=== PATIENT | female | born 1995 | race Caucasian/White ===

== ENCOUNTER 2017-03-30 23:16 | Emergency (ER) | payer OTHER ==
[~2017-03-30] VITALS: Ht 152.4 cm; Wt 78.9 kg
[~2017-03-30 23:16] MED LIST: IBUP-2213 PO
[2017-03-30 23:22] VITALS: BP 142/112
--- NOTE | 2017-03-30 23:25 | NUR ---
PT AMB W/O ASST TO ER CH/A
--- NOTE | 2017-03-30 23:30 | NUR ---
21 Y/O F W/C/O R SIDE HEADACHE, NAUSEA AND CHILLS X 1 HR AGO. PT STATES HAS A HX OF HEADACHES WHICH RESOLVE WITH IBUPROFEN WHICH HASNT RESOLVE THIS TIME. PT DENIES FEELING DIZZY, OR HAVING ANY VISUAL PROBLEMS. NO OTHER S/S OF DISTRESS NOTED. ER MD MADE AWARE.
--- NOTE | 2017-03-30 23:32 | NUR ---
Dr. Smalls evaluating patient.
[2017-03-30] MEDS ORDERED: PROCHLORPERAZINE 10 MG/2 ML VIAL IM ONE (23:45)
[2017-03-30] MEDS ORDERED: diphenhydrAMINE 50 MG/ML VIAL IM ONE (23:45)
[2017-03-31 00:16] VITALS: BP 142/112
--- NOTE | 2017-03-31 00:16 | NUR ---
Patient discharged with v/s stable. Written and verbal after care instructions given and explained. Patient alert, oriented and verbalized understanding of instructions. Ambulatory with to car. All questions addressed prior to discharge. ID band removed. Patient advised to follow up with PMD. Rx of BENADRYL, AND COMPAZINE given. Patient educated on indication of medication including possible reaction and side effects. Opportunity to ask questions provided and answered.
== END 2017-03-31 00:16 | disposition home or self-care (01) ==
LOC: MED 23:16
DX: R51 Headache (principal)
CPT/HCPCS: 96372; 99284; J0780; J1200

== ENCOUNTER 2017-12-05 13:37 | Emergency (ER) | payer OTHER ==
[~2017-12-05] VITALS: Ht 152.4 cm; Wt 68.0 kg
--- NOTE | 2017-12-05 13:48 | NUR ---
PT AMBULATED TO ER BED 05
--- NOTE | 2017-12-05 13:50 | NUR ---
22Y/F BIB SELF C/O L RIB PAIN X 4 DAYS. PT STATES "NO TRAUMA, 8/10 SHARP PAIN, - REDNESS, - SWELLING. PT IS AAOX4, VSS AT THIS TIME, BED DOWN, BEDRAIL UP X 1, ER MD AWARE AND NOTIFIED OF PT STATUS. HX; GALLBLADDER REMOVAL 2013 RX; NONE
[2017-12-05 13:53] VITALS: BP 135/69
--- NOTE | 2017-12-05 14:11 | NUR ---
Patient being evaluated by physician at bedside.
[2017-12-05] MEDS ORDERED: KETOROLAC 60 MG/2 ML VIAL IM ONE (15:10)
[2017-12-05] MEDS ORDERED: cefTRIAXone 1,000 MG in LIDOCAINE 1% ***ER ONLY *** 2.1 ML IM ONE (15:10)
[2017-12-05] MEDS ORDERED: LACTULOSE 20 GM/30 ML UDC PO ONE (15:10)
--- NOTE | 2017-12-05 15:35 | NUR ---
PT TRANSFERED TO BED 4
[2017-12-05 16:25] VITALS: BP 127/64
--- NOTE | 2017-12-05 16:28 | NUR ---
Patient discharged with v/s stable. Written and verbal after care instructions given and explained. Patient alert, oriented and verbalized understanding of instructions. Ambulatory with steady gait. All questions addressed prior to discharge. ID band removed. Patient advised to follow up with PMD. Rx of MOTRIN & LEVAQUIN given. Patient educated on indication of medication including possible reaction and side effects. Opportunity to ask questions provided and answered.
== END 2017-12-05 16:28 | disposition home or self-care (01) ==
LOC: MED 13:37
DX: N39.0 Urinary tract infection, site not specified (principal); I10 Essential (primary) hypertension; Z79.1 Long term (current) use of non-steroidal anti-inflammatories (NSAID); Z90.49 Acquired absence of other specified parts of digestive tract
CPT/HCPCS: 81002; 81025; 96372; 99284; J0696; J1885; J2001

== ENCOUNTER 2018-04-07 21:05 | Emergency (ER) | payer OTHER ==
[~2018-04-07] VITALS: Ht 152.4 cm; Wt 77.2 kg
[2018-04-07 21:22] VITALS: BP 123/64
--- NOTE | 2018-04-07 21:26 | NUR ---
PT AMBULATED TO BED #11
--- NOTE | 2018-04-07 21:36 | NUR ---
PT PRESENTS TO ED WITH R EAR PAIN AND BURNING CHEST PAIN WHEN COUGHING. BILATERAL LUNG MERCER CLEAR. EDEMA AND REDNESS NOTED TO THROAT, NO EXUDATE. EXPERINCING SYMPTOMS X 4DAYS. VSS. NOTIFIED. WILL CONTINUE TO MONITOR.
[2018-04-07 22:10] VITALS: BP 123/64
--- NOTE | 2018-04-07 22:10 | NUR ---
Patient discharged with v/s stable. Written and verbal after care instructions given and explained. Patient alert, oriented and verbalized understanding of instructions. Ambulatory with steady gait. All questions addressed prior to discharge. ID band removed. Patient advised to follow up with PMD. Rx of MOTRIN AND PROMETHAZINE DM given. Patient educated on indication of medication including possible reaction and side effects. Opportunity to ask questions provided and answered.
== END 2018-04-07 22:10 | disposition home or self-care (01) ==
LOC: MED 21:05
DX: J06.9 Acute upper respiratory infection, unspecified (principal); Z79.1 Long term (current) use of non-steroidal anti-inflammatories (NSAID)
CPT/HCPCS: 36415; 87804; 99283

== ENCOUNTER 2018-06-06 09:51 | Emergency (ER) | payer OTHER ==
[~2018-06-06] VITALS: Ht 160 cm; Wt 56.7 kg
[2018-06-06 09:57] VITALS: BP 94/55
--- NOTE | 2018-06-06 09:59 | NUR ---
urine cup handed to pt
--- NOTE | 2018-06-06 10:05 | NUR ---
PT AMBULATED TO ER BED 06
--- NOTE | 2018-06-06 10:15 | NUR ---
22 YO F WITH CHIEF C/O LLQ SHARP ABD PAIN 8/10 X YESTERDAY. +N/V/D.
--- NOTE | 2018-06-06 10:36 | NUR ---
ALISSON FERRARO AT BEDSIDE EVALUATING PT.
--- NOTE | 2018-06-06 10:42 | NUR ---
Patient discharged with v/s stable. Written and verbal after care instructions given and explained. Patient alert, oriented and verbalized understanding of instructions. Ambulatory with steady gait. All questions addressed prior to discharge. ID band removed. Patient advised to follow up with PMD. Rx of ZOFRAN AND LOMOTIL given. Patient educated on indication of medication including possible reaction and side effects. Opportunity to ask questions provided and answered.
[2018-06-06 10:47] VITALS: BP 118/78
== END 2018-06-06 10:42 | disposition home or self-care (01) ==
LOC: MED 09:51
DX: R19.7 Diarrhea, unspecified (principal); R11.10 Vomiting, unspecified; K21.9 Gastro-esophageal reflux disease without esophagitis; Z90.49 Acquired absence of other specified parts of digestive tract; Z79.899 Other long term (current) drug therapy
CPT/HCPCS: 81002; 81025; 99283

== ENCOUNTER 2018-06-23 21:10 | Emergency (ER) | payer OTHER ==
[~2018-06-23] VITALS: Ht 152.4 cm; Wt 77.1 kg
[2018-06-23 21:18] VITALS: BP 123/74
[2018-06-23] MEDS ORDERED: ACETAMINOPHEN 325 MG TAB PO ONE (21:25)
--- NOTE | 2018-06-23 21:27 | NUR ---
BIB SELF WITH REPORTS OF THROAT PAIN, LEFT EAR ACHE, NON PRODUCTIVE COUGH, FEVER AND HEADACHE STARTING YESTERDAY. STATES PAIN 8/10 AT THIS TIME. DENIES NVD, CP, OR SOB. NO OTHER SYMPTOMS REPORTED AT THIS TIME.
--- NOTE | 2018-06-23 21:28 | NUR ---
EMY JONES AT BEDSIDE.
[2018-06-23] MEDS ORDERED: ONDANSETRON 4 MG ODT PO ONE (21:45)
[2018-06-23] MEDS ORDERED: HYDROcodone/APAP 5/325 MG 1 TAB TAB PO ONE (21:45)
[2018-06-23 22:10] VITALS: BP 104/66
--- NOTE | 2018-06-23 22:10 | NUR ---
Patient discharged with v/s stable. Written and verbal after care instructions given and explained. Patient alert, oriented and verbalized understanding of instructions. Ambulatory with steady gait. All questions addressed prior to discharge. ID band removed. Patient advised to follow up with PMD. Rx of PROMETHAZINE DM AND TYLENOL given. Patient educated on indication of medication including possible reaction and side effects. Opportunity to ask questions provided and answered.
== END 2018-06-23 22:10 | disposition home or self-care (01) ==
LOC: MED 21:10
DX: J06.9 Acute upper respiratory infection, unspecified (principal); R51 Headache; K21.9 Gastro-esophageal reflux disease without esophagitis; Z79.1 Long term (current) use of non-steroidal anti-inflammatories (NSAID)
CPT/HCPCS: 99284; Q0162; Q0163

== ENCOUNTER 2020-06-27 18:33 | Emergency (ER) | payer OTHER ==
[~2020-06-27] VITALS: Ht 152.4 cm; Wt 72.6 kg
[2020-06-27 18:44] VITALS: BP 136/70
--- NOTE | 2020-06-27 19:08 | NUR ---
24/F presents to ED with c/o of abdominal pain. Patient states she began having upper abdominal pain radiating to her lower abdomen x3 days. Patient denies taking anything for pain, states she just found out she was on Wednesday, patient is A0. Patient describes the pain as 7/10 intermittent, sharp pain. Patient states she has nausea but denies vomiting, diarrhea, dysuria and hematuria at this time.
--- NOTE | 2020-06-27 19:15 | NUR ---
Pt report given to Caroline. Transfer of care at this time.
--- NOTE | 2020-06-27 19:21 | NUR ---
ERMD at bedside for examination of patient
--- NOTE | 2020-06-27 19:21 | NUR ---
[facility] in [facility] - 06/27/20 at [address] Verma examining patient.
[2020-06-27 19:26] LABS: BASOPHILS % (AUTO) 0.3 % (0.0-2.0); EOSINOPHILS # (AUTO) 0.1 K/uL (0-0.4); EOSINOPHILS % (AUTO) 0.9 % (0.0-4.0); HEMATOCRIT 37.4 % (36-48); HEMOGLOBIN 12.7 g/dL (12.0-16.0); LYMPHOCYTES # (AUTO) 1.8 K/uL (2.5-16.5); LYMPHOCYTES % (AUTO) 23.4 % (20.5-51.1); MEAN CORPUSCULAR HEMOGLOBIN 29 pg (27-31); MEAN CORPUSCULAR HGB CONC 34 g/dL (33-37); MEAN CORPUSCULAR VOLUME 86.7 fL (80-94); MONOCYTES # (AUTO) 0.5 K/uL (0.8-1.0); MONOCYTES % (AUTO) 7.1 % (1.7-9.3); NEUTROPHILS # (AUTO) 5.3 K/uL (1.8-7.7); NEUTROPHILS % (AUTO) 68.3 % (42.2-75.2); PLATELET COUNT (AUTO) 245 K/uL (140-450); RED BLOOD CELL COUNT(AUTO) 4.32 MIL/uL (4.20-5.40); WHITE BLOOD COUNT (AUTO) 7.7 K/uL (4.8-10.8)
--- NOTE | 2020-06-27 19:28 | NUR ---
pt in semi tyson's position. reports pain of a 6/10 in the abdominal area. AAOx4. VSS stable. no signs of acute distress at this time.
--- NOTE | 2020-06-27 19:30 | NUR ---
ultrasound at bedside.
[2020-06-27] MEDS ORDERED: NITR100C7 PO (19:36)
[2020-06-27] MEDS ORDERED: ONDA8TAB87 PO (19:36)
[2020-06-27 19:55] LABS: APPEARANCE,URINE BLOODY (CLEAR); BILIRUBIN,URINE NEGATIVE (NEGATIVE); BLOOD, URINE TRACE-L (NEGATIVE); COLOR,URINE ORANGE (YELLOW); LEUKOCYTE ESTERASE ,URINE 2+ (NEGATIVE); NITRITE, URINE NEGATIVE (NEGATIVE); PH,URINE 5.5 (5.0-9.0); UGLUCOSE NEGATIVE (NEGATIVE)
[2020-06-27 20:19] LABS: RBC,URINE 0-5 /HPF (0-5)
[2020-06-27 20:38] VITALS: BP 103/59
--- NOTE | 2020-06-27 20:38 | NUR ---
Patient discharged with v/s stable. Written and verbal after care instructions given and explained. Patient alert, oriented and verbalized understanding of instructions. Ambulatory with steady gait. All questions addressed prior to discharge. ID band removed. Patient advised to follow up with PMD. Rx of zofran and macrobid 100mg capsule given. Patient educated on indication of medication including possible reaction and side effects. Opportunity to ask questions provided and answered.
== END 2020-06-27 20:38 | disposition home or self-care (01) ==
LOC: MED 18:33
DX: O20.0 Threatened abortion (principal); O23.41 Unspecified infection of urinary tract in pregnancy, first trimester; K21.9 Gastro-esophageal reflux disease without esophagitis; Z3A.01 Less than 8 weeks gestation of pregnancy; Z79.899 Other long term (current) drug therapy; Z90.49 Acquired absence of other specified parts of digestive tract
CPT/HCPCS: 36415; 76817; 81001; 81025; 84702; 85025; 86900; 86901; 87086; 99284

== ENCOUNTER 2020-07-29 17:57 | Emergency (ER) | payer OTHER ==
[~2020-07-29] VITALS: Ht 152.4 cm; Wt 85.3 kg
[~2020-07-29 17:57] MED LIST changes: +NITR100C7 PO; +ONDA8TAB87 PO
[2020-07-29 18:03] VITALS: BP 149/73
--- NOTE | 2020-07-29 18:13 | NUR ---
PT AMBULATED TO BED 12.
--- NOTE | 2020-07-29 18:13 | NUR ---
24 y/o F BIB mother from home with c/c vaginal bleeding. Patient states she was at work 20 minutes prior to arrival and began experiencing vaginal bleeding. Patient did not have a pad on, however, states it was "a lot of blood on the tissue paper." Patient denies any pain with bleeding. Reports 10 weeks 2 days ; A0 L1. LMP: 05/2020. Denies N/V/D, urinary symptoms, dizziness, JOSEPH, clots, SOB, chest pain, fever/chills. HR 100. Bed locked in lowest position, side rails x 1, call light in reach. Urine sample collected. Mother at bedside. PMH/Sx/Meds: Prenatals NKA
--- NOTE | 2020-07-29 18:13 | NUR ---
Patient to restroom for urine sample.
--- NOTE | 2020-07-29 18:18 | NUR ---
Lab at bedside.
--- NOTE | 2020-07-29 18:18 | NUR ---
Urine sample collected, walked to lab and handed to CPT. Donna
--- NOTE | 2020-07-29 18:22 | NUR ---
Dr. Verma is evaluating patient at bedside with Ultrasound.
[2020-07-29 18:28] LABS: BASOPHILS % (AUTO) 0.2 % (0.0-2.0); EOSINOPHILS # (AUTO) 0.1 K/uL (0-0.4); EOSINOPHILS % (AUTO) 0.8 % (0.0-4.0); HEMATOCRIT 38.1 % (36-48); HEMOGLOBIN 12.9 g/dL (12.0-16.0); LYMPHOCYTES # (AUTO) 1.8 K/uL (2.5-16.5); LYMPHOCYTES % (AUTO) 25.6 % (20.5-51.1); MEAN CORPUSCULAR HEMOGLOBIN 30 pg (27-31); MEAN CORPUSCULAR HGB CONC 34 g/dL (33-37); MEAN CORPUSCULAR VOLUME 87.2 fL (80-94); MONOCYTES # (AUTO) 0.5 K/uL (0.8-1.0); NEUTROPHILS # (AUTO) 4.7 K/uL (1.8-7.7); NEUTROPHILS % (AUTO) 66.4 % (42.2-75.2); PLATELET COUNT (AUTO) 238 K/uL (140-450); RED BLOOD CELL COUNT(AUTO) 4.37 MIL/uL (4.20-5.40); RED CELL DISTRIBUTION WIDTH 14.2 % (11.6-13.7)
[2020-07-29 18:42] LABS: APPEARANCE,URINE CLEAR (CLEAR); BILIRUBIN,URINE NEGATIVE (NEGATIVE); BLOOD, URINE 3+ (NEGATIVE); COLOR,URINE YELLOW (YELLOW); LEUKOCYTE ESTERASE ,URINE 1+ (NEGATIVE); NITRITE, URINE NEGATIVE (NEGATIVE); UGLUCOSE NEGATIVE (NEGATIVE)
[2020-07-29 18:48] LABS: RBC,URINE 11-20 (MOD) /HPF (0-5)
[2020-07-29] MEDS ORDERED: CEPH-588 PO (18:50)
[2020-07-29 19:00] VITALS: BP 149/73
--- NOTE | 2020-07-29 19:00 | NUR ---
Patient discharged with v/s stable. Written and verbal after care instructions given and explained. Patient alert, oriented and verbalized understanding of instructions. Ambulatory with by parent. All questions addressed prior to discharge. ID band removed. Patient advised to follow up with PMD. Rx of Cephalexin given. Patient educated on indication of medication including possible reaction and side effects. Opportunity to ask questions provided and answered.
== END 2020-07-29 19:00 | disposition home or self-care (01) ==
LOC: MED 17:57
DX: O20.0 Threatened abortion (principal); O23.41 Unspecified infection of urinary tract in pregnancy, first trimester; K21.9 Gastro-esophageal reflux disease without esophagitis; Z3A.10 10 weeks gestation of pregnancy
CPT/HCPCS: 36415; 81001; 84702; 85025; 87086; 99284

== ENCOUNTER 2021-07-16 12:33 | Emergency (ER) | payer OTHER ==
[~2021-07-16] VITALS: Ht 152.4 cm; Wt 88.0 kg
[~2021-07-16 12:33] MED LIST changes: +CEPH-588 PO
[2021-07-16 12:36] VITALS: BP 123/71
[2021-07-16] MEDS ORDERED: PROCHLORPERAZINE 10 MG/2 ML VIAL IVP ONE (12:50)
[2021-07-16] MEDS ORDERED: diphenhydrAMINE 50 MG/ML VIAL IVP ONE (12:50)
[2021-07-16] MEDS ORDERED: ACETAMINOPHEN 325 MG TAB PO ONE (12:50)
[2021-07-16] MEDS ORDERED: KETOROLAC 30 MG/ML VIAL IVP ONE (12:50)
[2021-07-16] MEDS ORDERED: NACL 0.9% 1,000 ML IV SCH (12:50)
[2021-07-16] MEDS ORDERED: LORazepam 2 MG/ML VIAL IVP ONE (13:20)
[2021-07-16] MEDS ORDERED: LORazepam 2 MG/ML VIAL ONE (13:20)
[2021-07-16 13:53] LABS: BASOPHILS % (AUTO) 0.1 % (0.0-2.0); HEMATOCRIT 39.3 % (36-48); HEMOGLOBIN 13.1 g/dL (12.0-16.0); LYMPHOCYTES # (AUTO) 0.6 K/uL (2.5-16.5); LYMPHOCYTES % (AUTO) 4.9 % (20.5-51.1); MEAN CORPUSCULAR HEMOGLOBIN 28 pg (27-31); MEAN CORPUSCULAR HGB CONC 33 g/dL (33-37); MONOCYTES # (AUTO) 0.7 K/uL (0.8-1.0); MONOCYTES % (AUTO) 5.9 % (1.7-9.3); NEUTROPHILS # (AUTO) 10.9 K/uL (1.8-7.7); NEUTROPHILS % (AUTO) 89.1 % (42.2-75.2); PLATELET COUNT (AUTO) 246 K/uL (140-450); RED BLOOD CELL COUNT(AUTO) 4.73 MIL/uL (4.20-5.40); RED CELL DISTRIBUTION WIDTH 13.2 % (11.6-13.7); WHITE BLOOD COUNT (AUTO) 12.2 K/uL (4.8-10.8)
[2021-07-16 14:09] LABS: ALBUMIN 4.1 g/dL (3.4-5.0); ANION GAP 15.5 (8-16); CARBON DIOXIDE 23.9 mmol/L (21-32); CREATININE 0.6 mg/dL (0.6-1.3); POTASSIUM 3.4 mmol/L (3.5-5.1); TOTAL BILIRUBIN 1.6 mg/dL (0.0-1.0)
[2021-07-16] MEDS ORDERED: IBUP-2213 PO (15:30)
[2021-07-16] MEDS ORDERED: ONDA-188 SL (15:30)
[2021-07-16] MEDS ORDERED: METO-486 PO (15:30)
[2021-07-16 16:15] VITALS: BP 123/79
== END 2021-07-16 16:22 | disposition home or self-care (01) ==
LOC: MED 12:33
DX: G43.909 Migraine, unspecified, not intractable, without status migrainosus (principal); K52.9 Noninfective gastroenteritis and colitis, unspecified; K21.9 Gastro-esophageal reflux disease without esophagitis; Z90.49 Acquired absence of other specified parts of digestive tract; Z98.890 Other specified postprocedural states; Z79.2 Long term (current) use of antibiotics; Z79.899 Other long term (current) drug therapy; Z79.1 Long term (current) use of non-steroidal anti-inflammatories (NSAID)
CPT/HCPCS: 36415; 74176; 80053; 81002; 81025; 83605; 83690; 84703; 85025; 87040; 93005; 96361; 96374; 96375; 99285; J0780; J1200; J1885; J2060; J7030

== ENCOUNTER 2022-01-24 10:22 | Emergency (ER) | payer OTHER ==
[~2022-01-24] VITALS: Ht 157.5 cm; Wt 79.4 kg
[~2022-01-24 10:22] MED LIST changes: +METO-486 PO; +ONDA-188 SL
[2022-01-24 10:29] VITALS: BP 150/79
--- NOTE | 2022-01-24 10:47 | NUR ---
26 Y/O FEMALE BIB SELF WITH DAUGHTER C/O SORE THROAT AND RUNNY NOSE X2DAYS. DENIES ANY MEDICATION PRIOR TO ARRIVAL. STATES THAT DAUGHTER IS SICK WITH SIMILAR S/S X1 WEEK. NKA PMH: DENIES
[2022-01-24] MEDS ORDERED: BPM/118L5 PO (11:51)
[2022-01-24] MEDS ORDERED: TAM75 PO (11:51)
[2022-01-24] MEDS ORDERED: IBUP-1842 PO (11:51)
--- NOTE | 2022-01-24 12:50 | NUR ---
Patient discharged with v/s stable. Written and verbal after care instructions given and explained. Patient alert, oriented and verbalized understanding of instructions. Ambulatory with steady gait. All questions addressed prior to discharge. ID band removed. Patient advised to follow up with PMD. Rx of TAMIFLU given. Patient educated on indication of medication including possible reaction and side effects. Opportunity to ask questions provided and answered.
== END 2022-01-24 12:49 | disposition home or self-care (01) ==
LOC: MED 10:22
DX: B34.9 Viral infection, unspecified (principal); Z20.822 Contact with and (suspected) exposure to COVID-19; Z79.899 Other long term (current) drug therapy; Z98.890 Other specified postprocedural states
CPT/HCPCS: 99283